=== PATIENT | female | born 1985 | race Caucasian/White ===

== ENCOUNTER 2023-09-16 14:34 | Emergency (ER) | payer OTHER ==
[~2023-09-16] VITALS: Ht 157.5 cm; Wt 62.7 kg
[2023-09-16] MEDS ORDERED: BACTDSTA PO (14:42)
[2023-09-16 18:03] LABS: BASO % 0.8 % (0.0-1.0); EOS # 0.1 10^3/uL (0.0-0.5); EOS % 2.5 % (0.0-3.0); HEMATOCRIT 40.1 % (36.0-47.0); HEMOGLOBIN 14.1 g/dl (12.0-15.5); LYMPH # 0.9 10^3/uL (1.5-5.0); LYMPH % 19.5 % (24.0-44.0); MEAN CORPUSCULAR HGB CONC 35.2 g/dl (32.0-36.5); MEAN CORPUSCULAR VOLUME 91.1 fl (80.0-96.0); MONO # 0.6 10^3/uL (0.0-0.8); MONO % 11.6 % (2.0-8.0); NEUTROPHILS # 3.1 10^3/uL (1.5-8.5); NEUTROPHILS % 65.4 % (36.0-66.0); PLATELET COUNT, AUTOMATED 232 10^3/uL (150-450); WHITE BLOOD COUNT 4.7 10^3/uL (4.0-10.0)
[2023-09-16 18:35] LABS: LIPASE 30 U/L (12-53)
[2023-09-16 18:37] LABS: CPK CREATINE PHOSPHOKINASE 99 U/L (34-145)
[2023-09-16 18:38] LABS: ALBUMIN 4.1 G/DL (3.2-5.2); ALKALINE PHOSPHATASE 522 U/L (46-116); ALT/SGPT 907 U/L (7.0-40); AST/SGOT 692 U/L (<34); BILIRUBIN,DIRECT 0.9 MG/DL (<0.4); BILIRUBIN,TOTAL 1.9 MG/DL (0.3-1.2); BLOOD UREA NITROGEN 8 MG/DL (9-23); CALCIUM LEVEL 9.6 MG/DL (8.5-10.1); CARBON DIOXIDE LEVEL 24 MMOL/L (20-31); CHLORIDE LEVEL 101 MMOL/L (98-107); CK-MB VALUE MASS 1.3 NG/ML (<3.6); CREATININE FOR GFR 0.81 MG/DL (0.55-1.30); GLOMERULAR FILTRATION RATE > 60.0 (>60); GLUCOSE, FASTING 84 MG/DL (60-100); MB/CK RELATIVE INDEX 1.31 (< OR =4); SODIUM LEVEL 135 MMOL/L (136-145); TOTAL PROTEIN 7.4 G/DL (5.7-8.2)
[2023-09-16 19:45] LABS: CPK CREATINE PHOSPHOKINASE 93 U/L (34-145); MB/CK RELATIVE INDEX 1.07 (< OR =4)
[2023-09-16] MEDS ORDERED: ISOVUE-370 76% 100ML VIAL As Ordered ONE (20:31)
[2023-09-16 21:19] LABS: HEPATITIS B SURFACE ANTIGEN NEGATIVE (NEGATIVE)
[2023-09-16] MEDS: NS 1,000 ML IV ONE (21:28)
[2023-09-16 21:40] LABS: HEPATITIS B CORE ANTIBODY IGM NEGATIVE (NEGATIVE); HEPATITIS C VIRUS ABY INDEX 0.03 INDEX (<0.8)
[2023-09-16] MEDS ORDERED: AMOX500C PO (23:58)
[2023-09-16] MEDS ORDERED: IBUP-1022 PO (23:58)
[2023-09-17] MEDS: MORPHINE 2 MG/ML 1ML VIAL IV ONE (00:24)
[2023-09-17] MEDS: MORPHINE 4 MG/ML 1ML VIAL IV ONE ×2 (02:38→08:53)
[2023-09-17] MEDS: ONDANSETRON 4MG 2ML VIAL IV ONE ×2 (02:38→08:53)
[2023-09-17 09:12] VITALS: BP 105/73; TEMP 98.6; O2SAT 97
== END 2023-09-17 09:13 | disposition short-term general hospital (02) ==
LOC: M ED 14:34
DX: R10.9 Unspecified abdominal pain (principal); R74.01 Elevation of levels of liver transaminase levels; F10.10 Alcohol abuse, uncomplicated; Z79.2 Long term (current) use of antibiotics
CPT/HCPCS: 71046; 71275; 74177; 74181; 76705; 80048; 80074; 80076; 81001; 82550; 82553; 83690; 84484; 84702; 85025; 85379; 93005; 93041; 96374; 96376; 99285; J2405; Q9967

== ENCOUNTER → 2024-01-05 | Outpatient (CLI) | payer OTHER ==
[~2024-01-05] MED LIST: AMOX500C PO; BACTDSTA PO; IBUP-1022 PO
== END ==
LOC: M PLAIMG 13:53
PROVIDERS: ATTEND Internal Medicine Gastroenterology
DX: R74.01 Elevation of levels of liver transaminase levels (principal); R10.826 Epigastric rebound abdominal tenderness; R10.13 Epigastric pain

== ENCOUNTER 2025-01-10 20:00 | Emergency (ER) | payer OTHER ==
[~2025-01-10] VITALS: Ht 157.5 cm; Wt 61.6 kg
[~2025-01-10 20:00] MED LIST changes: -IBUP-1022 PO; +IBUP600T42 PO
[2025-01-10 20:39] LABS: KETONE, URINE AUTO RFX NEGATIVE (NEGATIVE); LEUKOCYTE ESTERASE UR AUTO RFX TRACE (NEGATIVE); MUCUS, URINE RFX SMALL (NEGATIVE); NITRITE, URINE AUTO RFX NEGATIVE (NEGATIVE); RBC, URINE AUTO RFX 2 /HPF (0-3); SQUAM EPITHELIAL CELL UR AURFX 2 /HPF (0-6); WBC, URINE AUTO RFX 9 /HPF (0-3)
[2025-01-10 21:48] LABS: Trichomonas vaginalis (AMP) NOT DETECTED (NEGATIVE)
[2025-01-10 22:12] LABS: GC DNA AMPLIFICATION NEGATIVE (NEGATIVE)
[2025-01-10 22:18] VITALS: BP 111/72; TEMP 98; O2SAT 100
[2025-01-10] MEDS ORDERED: CEFD300C PO (22:52)
[2025-01-10] MEDS: CEFDINIR 300 MG CAP PO ONE (23:05)
== END 2025-01-10 23:20 | disposition home or self-care (01) ==
LOC: M ED 20:00
DX: N30.00 Acute cystitis without hematuria (principal); Z88.2 Allergy status to sulfonamides; Z79.2 Long term (current) use of antibiotics